=== PATIENT | male | born 1960 | race Caucasian/White ===

== ENCOUNTER 2022-10-18 11:15 | Emergency (ER) | payer OTHER ==
[2022-10-18] MEDS ORDERED: LIDOCAINE 5% PATCH TOPICAL SCH (12:30)
[2022-10-18] MEDS ORDERED: KETOROLAC 15 MG/ML 1 ML VIAL IM STA (12:30)
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
[2022-10-18] MEDS ORDERED: ACET/COD 300 MG/30 MG STARTER PACK 6 TAB BTL PO STA ×2 (13:44)
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
[2022-10-18 14:09] VITALS: BP 118/57; PULSE 77; RESP 18; TEMP 98.1
== END 2022-10-18 14:07 | disposition home or self-care (01) ==
LOC: EC 11:15
DX: S22.31XA Fracture of one rib, right side, initial encounter for closed fracture (principal); I11.0 Hypertensive heart disease with heart failure; I50.9 Heart failure, unspecified; V18.0XXA Pedal cycle driver injured in noncollision transport accident in nontraffic accident, initial encounter; Y93.55 Activity, bike riding
CPT/HCPCS: 72070; 72100; 71100; 99284; 96372; J1885